=== PATIENT | female | born 1965 | race African-American/Black ===

== ENCOUNTER 2018-11-23 23:50 | Emergency (ER) | payer SELFPAY ==
[~2018-11-23] VITALS: Ht 165.1 cm; Wt 63.5 kg
[2018-11-24 00:32] LABS: Urine WBC None Seen /hpf (0 - 5)
[2018-11-24 00:43] VITALS: BP 199/79
[2018-11-24 01:12] LABS: Urine Bacteria NONE SEEN /hpf (None Seen); Urine Blood Negative /uL (Negative); Urine Specific Gravity 1.002 (1.001-1.035)
[2018-11-24] MEDS ORDERED: PHENAZOPYRIDINE HCL 100 MG TAB PO ONE (02:15)
[2018-11-24] MEDS ORDERED: AZITHROMYCIN 250 MG TAB PO ONE (02:15)
[2018-11-24] MEDS ORDERED: cefTRIAXone SOD 1,000 MG VL IM ONE (02:15)
== END 2018-11-24 03:15 | disposition home or self-care (01) ==
LOC: ER 23:54
DX: N39.0 Urinary tract infection, site not specified (principal); Z20.2 Contact with and (suspected) exposure to infections with a predominantly sexual mode of transmission
CPT/HCPCS: 81001; 96372; 99283; J0696

== ENCOUNTER → 2023-07-01 21:03 | Emergency (ER) | payer OTHER | END | disposition home or self-care (01) | LOC: ER 21:03 | DX: M79.672 Pain in left foot (principal); M79.671 Pain in right foot; Z53.21 Procedure and treatment not carried out due to patient leaving prior to being seen by health care provider ==